=== PATIENT | male | born 1965 | race Caucasian/White ===

== ENCOUNTER → 2020-11-13 | Day surgery (SDC) | payer OTHER ==
[~2020-11-13] MED LIST: Lactated Ringers 1,000 ML IV SCH; Lidocaine 1% 4 ML ONE; Lidocaine 1%/Sod Bicarbonate in NS 8.4% 1 ML Syringe IDERM PRN; Midazolam 1 MG/ML 2 ML SDV ONE; Propofol 200 MG/20 ML SDV ONE; Sodium Chloride 0.9% 10 ML Syringe FLUSH PRN; fentaNYL 100 MCG/2 ML SDV ONE
--- NOTE | 2020-11-13 09:25 | PCM.PREANE ---
Preanesthetic Assessment - Procedure Proposed Procedure: Colonoscopy - Anesthesia/Transfusion/Family Hx Anesthesia History: Prior Anesthesia Without Reaction Family History of Anesthesia Reaction: No Transfusion History: No Prior Transfusion(s) - Review of Systems General: No Symptoms Pulmonary: No Symptoms Cardiovascular: No Symptoms Gastrointestinal: No Symptoms Neurological: No Symptoms Other: Reports: None - Physical Assessment NPO Status Date: 11/13/20 NPO Status Time: 04:00 Height: 1.82 m Weight: 93.1 kg ASA Class: 2 Mental Status: Alert & Oriented x3 Airway Class: Mallampati = 1 Dentition: Reports: Normal Dentition Thyro-Mental Finger Breadths: 3 Mouth Opening Finger Breadths: 3 ROM/Head Extension: Full Lungs: Clear to Auscultation, Normal Respiratory Effort Cardiovascular: Regular Rate, Regular Rhythm - Allergies Allergies/Adverse Reactions: Allergies Allergy/AdvReac Type Severity Reaction Status Date / Time bee venom protein (honey bee) Allergy Airway Verified 11/12/20 09:34 Tightness - Blood Blood Available: No Product(s) Available: None - Anesthesia Plan Pre-Op Medication Ordered: None - Acknowledgements Anesthesia Type Planned: MAC Pt an Appropriate Candidate for the Planned Anesthesia: Yes Alternatives and Risks of Anesthesia Discussed w Pt/Guardian: Yes Pt/Guardian Understands and Agrees with Anesthesia Plan: Yes PreAnesthesia Questionnaire HEENT History: Reports: Allergic Rhinitis, Other (See Below) Other HEENT History: right ear fullness, bilateral hearing loss, tinnitis, right otitis media Cardiovascular History: Reports: None Respiratory History: Reports: None Gastrointestinal History: Reports: Other (See Below) Other Gastrointestinal History: hyperbilirubinemia, rectal fissure Genitourinary History: Reports: None MARKET ANALYST History: Reports: None Musculoskeletal History: Reports: None Neurological History: Reports: None Psychiatric History: Reports: Addiction Endocrine/Metabolic History: Reports: None Hematologic History: Reports: None Immunologic History: Reports: None Oncologic (Cancer) History: Reports: None Dermatologic History: Reports: Other (See Below) Other Dermatologic History: atypical nevus - Infectious Disease History Infectious Disease History: Reports: None - Past Surgical History HEENT Surgical History: Reports: EMIK Cardiovascular Surgical History: Reports: None Respiratory Surgical History: Reports: None GI Surgical History: Reports: None Female Surgical History: Reports: None Male Surgical History: Reports: None Endocrine Surgical History: Reports: None Neurological Surgical History: Reports: None Musculoskeletal Surgical History: Reports: Other (See Below) Other Musculoskeletal Surgeries/Procedures:: left arm fracture with ORIF and later hardware removal, knee surgery, left finger reattached Oncologic Surgical History: Reports: None Dermatological Surgical History: Reports: None - SUBSTANCE USE Tobacco Use Status *Q: Former Tobacco User Tobacco Use Within Last Twelve Months: No Second Hand Smoke Exposure: No Days Per Week of Alcohol Use: 0 Number of Drinks Per Day: 0 Total Drinks Per Week: 0 Recreational Drug Use History: No - HOME MEDS Home Medications: Home Meds Cinnamon Bark [Cinnamon] 500 mg PO DAILY 11/12/20 [History] Fish Oil/[place]-3 Fatty Acids [Fish Oil 1,000 MG] 1 gm PO DAILY 11/12/20 [History] Fluticasone Propionate 1 dose NASBOTH BID 11/12/20 [History] Multivitamin 1 tab PO DAILY 11/12/20 [History] predniSONE [Prednisone] 20 mg PO ASDIRECTED 11/12/20 [History] - CURRENT (IN HOUSE) MEDS Current Meds: Current Medications Lactated Ringer's (Ringers, Lactated) 1,000 mls @ 125 mls/hr IV ASDIRECTED MERLENE Stop: 11/13/20 23:00 Last Admin: 11/13/20 09:00 Dose: 125 mls/hr Documented by: Lidocaine/Sodium Bicarbonate (Buffered Lidocaine 1% In Ns 8.4%) 0.25 ml IDERM ONETIME PRN PRN Reason: Prior to IV Start Stop: 11/13/20 18:00 Last Admin: 11/13/20 09:00 Dose: 0.25 ml Documented by: Sodium Chloride (Saline Flush) 10 ml FLUSH ASDIRECTED PRN PRN Reason: Keep Vein Open Stop: 11/13/20 18:00 Discontinued Medications Fentanyl (Sublimaze) Confirm Administered Dose 100 mcg .ROUTE .STK-MED ONE Stop: 11/13/20 09:19 Propofol (Diprivan 20 Ml) Confirm Administered Dose 400 mg .ROUTE .STK-MED ONE Stop: 11/13/20 09:19
--- NOTE | 2020-11-13 10:19 | PCM.PRNOTE ---
- Free Text/Narrative Note: Date: 11/13/2020 Procedure: screening colonoscopy Endoscopist: Anders Mena MD Findings: very good prep. One small polyp removed with cold forceps, at about 60 cm from anal verge Detailed Report: The patient was taken to the endoscopy suite and placed in left lateral decubitus position. Time out was performed and monitored anesthesia care initiated. Anus appeared normal. Digital exam unremarkable. The colonoscope was inserted and advanced to the cecum. The appendiceal orifice was visualized. The terminal ileum was intubated. Prep was very good. The scope was slowly withdrawn and mucosal surfaces carefully inspected. In the descending colon, a very small sessile polyp was removed piecemeal with cold forceps. Minor scattered diverticular disease was noted. No abnormality was noted on retroflexion within the rectum. Air was suctioned prior to withdrawal of the scope. The patient tolerated the procedure well.
--- NOTE | 2020-11-13 10:28 | PCM48HPAN ---
Post Anesthesia Note - EVALUATION WITHIN 48HRS OF ANESTHETIC Vital Signs in Normal Range: Yes Patient Participated in Evaluation: Yes Respiratory Function Stable: Yes Airway Patent: Yes Cardiovascular Function Stable: Yes Hydration Status Stable: Yes Pain Control Satisfactory: Yes Nausea and Vomiting Control Satisfactory: Yes Mental Status Recovered: Yes Vital Signs: Last Vital Signs Temp 36.4 C 11/13/20 09:23 Pulse 74 11/13/20 09:23 Resp 16 11/13/20 09:23 BP 131/63 11/13/20 09:23 Pulse Ox 96 11/13/20 09:23 - COMMENTS/OBSERVATIONS Free Text/Narrative:: no anesthesia complications noted
== END | disposition home or self-care (01) ==
LOC: JD.SDS 08:32
PROVIDERS: ATTEND Surgery
DX: Z12.11 Encounter for screening for malignant neoplasm of colon (principal); K57.30 Diverticulosis of large intestine without perforation or abscess without bleeding; K63.89 Other specified diseases of intestine; Z91.030 Bee allergy status; Z79.899 Other long term (current) drug therapy; Z98.890 Other specified postprocedural states; Z87.891 Personal history of nicotine dependence
CPT/HCPCS: 45380; J2250; J2370; J2704; J3010; J7120; 00812

== ENCOUNTER 2021-02-10 22:30 | Emergency (ER) | payer OTHER ==
[2021-02-10] MEDS ORDERED: Acetaminophen 325 MG Tab PO ONE (23:08)
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
--- NOTE | 2021-02-11 06:47 | CR ---
Chest and left ribs: Frontal view of the chest was obtained as well as 3 views of the left ribs. Comparison: No prior chest or rib exam is available. Heart size and mediastinum appear within normal limits. Lungs are clear with no acute parenchymal change. Minimal degenerative change is noted within the acromioclavicular joints. Left ribs show no discrete fracture or other bony abnormality. Minimal scoliosis is noted. Impression: 1. Mild degenerative change within the acromioclavicular joint. 2. Nothing acute is seen on frontal chest x-ray. 3. No discrete left-sided rib abnormality is appreciated. Diagnostic code #2
== END 2021-02-11 00:17 | disposition home or self-care (01) ==
LOC: JD.ED 22:30
DX: S22.32XA Fracture of one rib, left side, initial encounter for closed fracture (principal); Z91.030 Bee allergy status; V29.9XXA Motorcycle rider (driver) (passenger) injured in unspecified traffic accident, initial encounter
CPT/HCPCS: 71101; 99284; A9270; 99283